=== PATIENT | male | born 1980 | race Caucasian/White ===

== ENCOUNTER → 2025-04-13 09:45 | Outpatient (REF) | payer OTHER, SELFPAY | LOC: HWRAD 09:45 | PROVIDERS: ATTENDING PHYSICIAN Internal Medicine Hematology & Oncology; FAMILY PHYSICIAN Physician Assistant Medical | DX: R79.89 Other specified abnormal findings of blood chemistry (principal); E83.10 Disorder of iron metabolism, unspecified | CPT/HCPCS: 76700 ==